=== PATIENT | female | born 1970 | race Caucasian/White ===

== ENCOUNTER 2017-02-21 07:10 | Inpatient (IN) | payer BC ==
[~2017-02-21] VITALS: Ht 162.6 cm; Wt 77.1 kg
[~2017-02-21 07:10] MED LIST: LEVO25TA58 PO
[2017-02-21] MEDS ORDERED: ALVIMOPAN 12 MG CAPSULE PO ONE ×2 (07:34→08:15)
[2017-02-21 07:57] LABS: HCG,QUAL RESULT NEGATIVE (NEGATIVE)
[2017-02-21] MEDS ORDERED: cefOXitin SODIUM 2 GM in D5W 100 ML IV ONE (08:15)
[2017-02-21] MEDS ORDERED: LR 1,000 ML IV SCH (11:23)
[2017-02-21] MEDS ORDERED: MORPHINE 4 MG/ML INJ. SYRINGE IVP PRN ×3 (11:30)
[2017-02-21] MEDS ORDERED: METOCLOPRAMIDE HCL 10 MG/2 ML VIAL IVP PRN (11:30)
[2017-02-21] MEDS ORDERED: ONDANSETRON HCL 4 MG/2 ML VIAL IVP PRN (12:00)
[2017-02-21] MEDS ORDERED: HYDROcodone/ACETAMIN 5-325 MG TAB (NORCO/ VICODIN) PO PRN ×2 (12:00)
[2017-02-21] MEDS ORDERED: METOCLOPRAMIDE HCL 10 MG/2 ML VIAL ONE (12:12)
[2017-02-21] MEDS ORDERED: MORPHINE 4 MG/ML INJ. SYRINGE ONE (12:18)
[2017-02-21 12:49] LABS: HEMATOCRIT 39.8 % (36-48); HEMOGLOBIN 13.5 g/dL (12.0-16.0)
[2017-02-21 12:59] LABS: CALCIUM 8.3 mg/dL (8.4-11.0); CREATININE 0.94 mg/dL (0.55-1.30); POTASSIUM 3.1 mmol/L (3.5-5.1)
[2017-02-21 13:00] VITALS: BP 125/72; PULSE 72; RESP 16; TEMP 97.1; O2SAT 100
--- NOTE | 2017-02-21 13:15 | NUR ---
ADMISSION NOTE Received patient from PACU via kulwinder, received report from MOLLY Pagan. Patient admitted with S/P laparoscopic colon resection. Patient oriented to hospital routine, call light, toileting and safety-patient verbalized understanding.
[2017-02-21] MEDS: HYDROmorphone 1 MG INJ. 1 MG/ML AMPUL IVP PRN ×6 (13:38→22:41)
--- NOTE | 2017-02-21 13:45 | NUR ---
Initial physical assessment: Patient on bed awake and drowsy. Skin intact except for the abdominal incision. Dressing intact. no active bleeding. I.V. access in placed. rosas Cath draining well by gravity with yellow urine. SCD in placed. Safety measures in placed. Call light wt bedside.
[2017-02-21 13:48] VITALS: BP 125/72; PULSE 69; RESP 16; TEMP 97.2; O2SAT 100
[2017-02-21] MEDS: D5/0.45 NS 1,000 ML IV SCH (15:16)
--- NOTE | 2017-02-21 15:23 | NUR ---
Dr. Mari: Dr. Mari called and said she does not go to hospital.
[2017-02-21] MEDS ORDERED: POTASSIUM CHLORIDE 40 MEQ, LIDOCAINE JECT 2% PF 100 MG 50 MG in NS 250 ML IV ONE (16:00)
--- NOTE | 2017-02-21 16:00 | NUR ---
pain meds: patient complained of abdominal pain 8/. due pain meds given thru i.v.p.
--- NOTE | 2017-02-21 16:12 | NUR ---
Hospitalist consult called: for Dr. Casey, ordered by Dr. Casey, for medical management.
--- NOTE | 2017-02-21 16:44 | NUR ---
New Hospitalist consult: for Dr. Frost (Dr. Ridley), regarding medical management, ordered by Dr. Gamal Panda, spoke with Yessica.
[2017-02-21] MEDS ORDERED: SEVOFLURANE 15 MIN GAS INH ONE (17:42)
[2017-02-21] MEDS ORDERED: cefOXitin 2 GM IVPB PREMIX 50 ML IV ONE (17:42)
[2017-02-21] MEDS ORDERED: NS IRRIG SOLN 1000 ML IR ONE (17:42)
[2017-02-21] MEDS ORDERED: ONDANSETRON HCL 4 MG/2 ML VIAL IVP ONE (17:42)
[2017-02-21] MEDS ORDERED: ROCURONIUM BROMIDE 10 MG/ML (ZEMURON) IV ONE (17:42)
[2017-02-21] MEDS ORDERED: fentaNYL CITRATE 250 MCG/5 ML AMP IV ONE (17:42)
[2017-02-21] MEDS ORDERED: MIDAZOLAM HCL 5 MG/ML VIAL (VERSED) IV ONE (17:42)
[2017-02-21] MEDS ORDERED: NEOSTIGMINE METHYLSULFATE 1 MG/ML, 10 ML VIAL IVP ONE (17:42)
[2017-02-21] MEDS ORDERED: NS 1000 ML BAG IV ONE (17:42)
[2017-02-21] MEDS ORDERED: GLYCOPYRROLATE 0.2 MG/ML VIAL IJ ONE (17:42)
[2017-02-21] MEDS ORDERED: LR 1,000 ML IV.SOLN IV ONE (17:42)
[2017-02-21 18:06] VITALS: BP 125/72; PULSE 92
--- NOTE | 2017-02-21 18:46 | NUR ---
closing notes: patient on bed resting. stable. needs attended. safety measures in placed. call light within reach. Report will be given tonight shift.
--- NOTE | 2017-02-21 19:30 | NUR ---
INITIAL NOTE Received report from day shift. Pt resting in bed in no distress with IV K-Regis and D5 1/2 NS running well via 18g IV to right hand. Pts spouse at bedside. Martinez catheter draining well clear yellow urine. Call vigil within reach. Encouraged pt to use call vigil at all times. Verbalized understanding.
[2017-02-21 20:00] VITALS: BP 141/84; PULSE 83; RESP 18; TEMP 98.4; O2SAT 98
--- NOTE | 2017-02-21 20:10 | NUR ---
ROUNDS/PAIN MEDICATION Pt requesting pain medication for abd pain 12/06. VS stable. Dilaudid 1mg administered. Will continue to monitor. Call vigil within reach.
[2017-02-21] MEDS: ALVIMOPAN 12 MG CAPSULE PO SCH (21:00)
--- NOTE | 2017-02-21 21:50 | NUR ---
ROUNDS/MEDICATION Pt resting in no distress. Denies pain. routine medication administered. Will continue to monitor.
[2017-02-21] MEDS: FAMOTIDINE PF 20 MG/2 ML VIAL IVP SCH (22:40)
[2017-02-21] MEDS: cefOXitin SODIUM 2 GM in D5W 100 ML IV SCH (22:42)
--- NOTE | 2017-02-21 22:50 | NUR ---
ROUNDS/PAIN MEDICATION Pt requesting pain medication for abd pain 12/06. Diluadid 1mg administered. Call vigil within reach and fall precautions in place. Will continue to monitor.
--- NOTE | 2017-02-21 23:15 | NUR ---
ROUNDS Pt sleeping soundly in no distress. Pain medication effective. Pt requesting all lights be turned off in room. Call vigil left within reach. Reminded pt to call for help. Verbalized understanding.
[2017-02-21 23:53] VITALS: BP 115/77; PULSE 79; RESP 20; TEMP 98.9; O2SAT 96
[2017-02-22] VITALS (7 sets, daily range): BP systolic 116–147; BP diastolic 60–89; PULSE 69–80; RESP 16–20; TEMP 97.2–99; O2SAT 91–100
[2017-02-22] MEDS: HYDROmorphone 1 MG INJ. 1 MG/ML AMPUL IVP PRN ×7 (01:55→22:00)
--- NOTE | 2017-02-22 01:58 | NUR ---
ROUNDS Pt awake and alert requesting pain medication for pain 12/06 to abd. Breathing easy and unlabored. 18g IV to right hand running well. Administered dialaudid 1mg per md orders. will continue to monitor.
--- NOTE | 2017-02-22 02:32 | NUR ---
ROUNDS Medication effective. Pt sleeping soundly in no distress. Call vigil within reach. Will continue to monitor.
[2017-02-22] MEDS: D5/0.45 NS 1,000 ML IV SCH ×2 (03:52→09:32)
--- NOTE | 2017-02-22 04:01 | NUR ---
ROUNDS New bag of IV fluids started. Pt requesting pain medication for abd pain. Denies nausea/vomiting. Dressing to abd continues clean, dry and intact. Dilaudid IV administered.
[2017-02-22 06:25] LABS: BASOPHILS % (AUTO) 0.2 % (0.0-2.0); EOSINOPHILS % (AUTO) 0.2 % (0.0-4.0); HEMOGLOBIN 12.4 g/dL (12.0-16.0); LYMPHOCYTES # (AUTO) 1.3 K/uL (1.0-5.5); LYMPHOCYTES % (AUTO) 9.5 % (20.5-51.5); MEAN CORPUSCULAR HEMOGLOBIN 30 pg (27-31); MEAN CORPUSCULAR HGB CONC 34 % (32-36); MEAN CORPUSCULAR VOLUME 87 fL (79.0-98.0); MONOCYTES # (AUTO) 0.8 K/uL (0.0-1.0); NEUTROPHILS # (AUTO) 11.5 K/uL (1.8-7.7); NEUTROPHILS % (AUTO) 84.1 % (40.0-70.0); PLATELET COUNT (AUTO) 243 K/uL (130-430); RED BLOOD CELL COUNT(AUTO) 4.15 MIL/uL (4.2-6.2); RED CELL DISTRIBUTION WIDTH 12.7 % (9.0-15.0); WHITE BLOOD COUNT (AUTO) 13.6 K/uL (4.8-10.8)
[2017-02-22 06:38] LABS: ALBUMIN 3.1 g/dL (3.4-4.8); CALCIUM 8.4 mg/dL (8.4-11.0); CREATININE 0.7 mg/dL (0.55-1.30); POTASSIUM 3.9 mmol/L (3.5-5.1); TOTAL BILIRUBIN 0.5 mg/dL (0.0-1.0)
--- NOTE | 2017-02-22 07:03 | NUR ---
CLOSING NOTE pt awake and alert requesting pain medication for abd pain. Dilaudid as prescribed administered. Encouraged pt to use incentive spirometer as often as possible and tolerable. Pt verbalized understanding. IV continues to run well. Will continue to monitor and endorse care to dayshift.
--- NOTE | 2017-02-22 07:36 | NUR ---
Nutrition Update Ender Scale 18 noted. Pt admitted for disease of intestine, unspecified. Diet: NPO BMI: 29.2 kg/m2 RD to follow per nutrition care standards.
--- NOTE | 2017-02-22 08:00 | NUR ---
RN OPENING NOTE PATIENT LYING ON BED ALERT ORIENTEDX4, DENIES PAIN OR DISCOMFORT. PATIENT VITAL SIGNS ARE STABLE. PATIENT WAS ASSESSED PATIENT WILL BE GIVEN HER MEDICATION PRESCRIBED
[2017-02-22] MEDS: ALVIMOPAN 12 MG CAPSULE PO SCH ×2 (09:29→21:59)
[2017-02-22] MEDS: FAMOTIDINE PF 20 MG/2 ML VIAL IVP SCH ×2 (09:30→21:59)
[2017-02-22] MEDS: ENOXAPARIN SODIUM 30 MG/0.3 ML SYRINGE SUBCUT SCH (09:31)
[2017-02-22] MEDS: cefOXitin SODIUM 2 GM in D5W 100 ML IV SCH (09:31)
--- NOTE | 2017-02-22 09:47 | NUR ---
RN ROUNDS PATIENT HAS AN EPIGASTRIC PAIN, NO NAUSEA OR VOMITING ON > THE PAIN IS 7 ON A 0/10 SCALE. PATIENT WAS GIVEN HER DILAUDID IV PUSH, WILL REASSESS.
--- NOTE | 2017-02-22 10:00 | NUR ---
RN ROUNDS PATIENT F/C WAS REMOVED AND 800 ML OF CLEAR URINE WAS DISCARDED. WILL FOLLOW UP TO MAKE SURE PATIENT IS ABLE TO VOID ON HER OWN
--- NOTE | 2017-02-22 12:23 | NUR ---
RN ROUNDS PATIENT COMPLAINS OF PAIN OF 9 ON 0/10 SCALE , PATIENT WAS GIVEN HER DILAUDID IVP. WILL REASSESS.
[2017-02-22] MEDS: METOCLOPRAMIDE HCL 10 MG/2 ML VIAL IVP SCH ×2 (14:55→21:59)
--- NOTE | 2017-02-22 17:31 | NUR ---
RN ROUNDS PATIENT COMPLAINED OF PAIN OF 9 ON A 0/10 NUMERIC SCALE IN THE EPIGASTRIC AREA. PATIENT WAS GIVEN HER PRN DILAUDID IVP> WILL REASSESS
--- NOTE | 2017-02-22 18:00 | NUR ---
RN CLOSING NOTE PATIENT WAS REASSESSED REGARDING HER PAIN AND IT'S 0 ON A 0/10 SCALE , PATIENT WAS SERVED HER DINNER, SHE DENIES PAIN OR DISCOMFORT , FAMILY MEMBERS BY BEDSIDE,WILL ENDORSE TO NEXT SHIFT.
--- NOTE | 2017-02-22 19:45 | NUR ---
INITIAL NOTE Received report from dayshift nurse. Pt with multiple visitors at bedside. Brushing her teeth in no distress. VS stable. Pt expressing concerns over possible discharge and pain control and dressing change. Discussed with pt that discharge CM will review concerns with her prior to discharge. Verbalized understanding. Call vigil within reach. Will continue to monitor.
--- NOTE | 2017-02-22 21:50 | NUR ---
ROUNDS Routine medications administered. Assisted pt oob to bathroom pt noted with steady gait and able to void without difficulty. IV Dilaudid given for abd pain. Will continue to monitor.
[2017-02-23] MEDS: D5/0.45 NS 1,000 ML IV SCH ×2 (00:10→00:30)
--- NOTE | 2017-02-23 00:10 | NUR ---
ROUNDS Pt resting soundly in no distress. Breathing easy and unlabored. Replaced IV fluids bag with new D5 1/2 NS bag set to run at 100mls per hour. IV flowing well. Will continue to monitor pt.
--- NOTE | 2017-02-23 02:22 | NUR ---
ROUNDS Pt awake and alert. IV battery alarming low. Connected pump. Pt in no distress. Call vigil within reach. Will continue to monitor.
[2017-02-23 03:50] VITALS: BP 132/78; PULSE 69; RESP 20; TEMP 99; O2SAT 98
--- NOTE | 2017-02-23 04:45 | NUR ---
ROUNDS Pt sleeping soundly, easily arousable in no distress. VS stable. Pt ambulated to bathroom with steady gait. Will continue to monitor.
[2017-02-23] MEDS: HYDROmorphone 1 MG INJ. 1 MG/ML AMPUL IVP PRN (06:44)
[2017-02-23] MEDS: METOCLOPRAMIDE HCL 10 MG/2 ML VIAL IVP SCH ×2 (06:49→13:50)
--- NOTE | 2017-02-23 06:54 | NUR ---
CLOSING NOTE Pt sitting up in chair awake and alert c/o abd pain 12/06. Administered routine medication along with Dilaudid 1mg for abd pain. Per pts request brought her ice chips. Will continue to monitor and endorse care to dayshift.
[2017-02-23 08:00] VITALS: BP 119/73; PULSE 71; RESP 18; TEMP 98.8; O2SAT 97
--- NOTE | 2017-02-23 08:00 | NUR ---
patient is A/Ox4. IV on the right wrist, #18, running D5 1/2 NS at 100ml/hr. Ambulatory. Dressing noted on the abdomen, CDI. Call light in place, bed locked at the lowest position, POC is updated with patient.
[2017-02-23] MEDS: ENOXAPARIN SODIUM 30 MG/0.3 ML SYRINGE SUBCUT SCH (08:18)
[2017-02-23] MEDS: ALVIMOPAN 12 MG CAPSULE PO SCH (08:18)
[2017-02-23] MEDS: FAMOTIDINE PF 20 MG/2 ML VIAL IVP SCH (08:18)
--- NOTE | 2017-02-23 10:14 | NUR ---
Anticipate home with spouse and f/u with PCP/surgeon and oncology as per referrals. If d/c needs call Dafne Hutchinson RN/LUIGI/Sean HCP [phone]
[2017-02-23] MEDS: ACETAMINOPHEN 325 MG TABLET PO PRN ×2 (10:15→14:58)
--- NOTE | 2017-02-23 12:00 | NUR ---
patient is eating lunch, no signs of distress noted.
[2017-02-23 12:34] VITALS: BP 129/93; PULSE 86; RESP 17; TEMP 98.9; O2SAT 96
--- NOTE | 2017-02-23 14:00 | NUR ---
Patient's seen by Dr. Panda. Orders were given.
[2017-02-23 14:31] VITALS: BP 129/91; PULSE 72; RESP 16; TEMP 98.9; O2SAT 98
--- NOTE | 2017-02-23 16:25 | NUR ---
patient is resting, no signs of distress noted.
[2017-02-23 16:30] VITALS: BP 144/80; PULSE 84; RESP 17; TEMP 98.5; O2SAT 97
== END 2017-02-23 18:52 | disposition home or self-care (01) | DRG 331 ==
LOC: SMU 07:10 → EDSTATUS 08:50 → SMU 13:31
PROVIDERS: ADMIT Colon & Rectal Surgery; ATTEND Colon & Rectal Surgery
PROC: 0DTF0ZZ Resection of Right Large Intestine, Open Approach (ICD-10-PCS; principal; 2017-02-21 08:50)
DX: R19.09 Other intra-abdominal and pelvic swelling, mass and lump (principal); D12.3 Benign neoplasm of transverse colon; K63.9 Disease of intestine, unspecified
CPT/HCPCS: 36415; 80048; 80053; 84703; 85018-TC; 85025; 87081; 88307; 94010; 97110-GP; 97116-GP; C1727; J0694; J1170; J1650; J2250; J2270; J2405; J2710; J2765; J3010; J3480; J3490; J7030; J7050; J7060; J7120